=== PATIENT | male | born 1965 | race Caucasian/White ===

== ENCOUNTER 2021-06-10 14:59 | Emergency (ER) | payer BC ==
--- NOTE | 2021-06-10 16:31 | XR ---
EXAMINATION TYPE: XR chest 2V DATE OF EXAM: 06/10/2021 COMPARISON: NONE HISTORY: Chest pain TECHNIQUE: Frontal and lateral views of the chest are obtained. FINDINGS: Vague infiltrate right perihilar region. Correlate for underlying pneumonia. No evidence for pneumothorax. No pleural effusion. The cardiac silhouette size is within normal limits. The osseous structures are grossly intact. IMPRESSION: 1. Vague infiltrate right perihilar region. Correlate for underlying pneumonia.
[2021-06-10] MEDS ORDERED: ACETAMINOPHEN TAB 500 MG TAB PO STA (17:54)
--- NOTE | 2021-06-10 17:58 | ED ---
URI HPI - General Chief Complaint: Upper Respiratory Infection Stated Complaint: COVID+,wants infusion Time Seen by Provider: 06/10/21 17:37 Source: patient, RN notes reviewed Mode of arrival: ambulatory Limitations: no limitations - History of Present Illness Initial Comments: Patient is a 55-year-old male presenting to the emergency department requesting monoclonal antibodies. Patient states he tested positive for Covid 7 days ago, symptoms started about 8 days ago. He isn't having fever, cough, chills, body aches and congestion. He has been taking Motrin for his fever and bodyaches. He last took Motrin about 3 hours prior to arrival. He denies any chest pain or shortness of breath, no abdominal pain, no vomiting or diarrhea. He still been able to tolerate liquids. Patient has no further complaints. Upon arrival to the ER, is a slight temperature 99.7, rest of vitals within normal limits. - Related Data Previous Rx's Medication Instructions Recorded Albuterol Inhaler [Ventolin Hfa 1 puff INHALATION RT-QID PRN #8 gm 06/10/21 Inhaler] Dexamethasone [Decadron] 6 mg PO DAILY 5 Days #5 tablet 06/10/21 Allergies Allergy/AdvReac Type Severity Reaction Status Date / Time cefaclor [From Ceclor] Allergy Unknown Verified 06/10/21 16:01 Penicillins Allergy Unknown Verified 06/10/21 16:01 Childhood Sulfa (Sulfonamide Allergy Rash/Hives Verified 06/10/21 16:01 Antibiotics) Review of Systems ROS Statement: Those systems with pertinent positive or pertinent negative responses have been documented in the HPI. ROS Other: All systems not noted in ROS Statement are negative. General Exam - General Exam Comments Initial Comments: GENERAL: Patient is well-developed and well-nourished. Patient is nontoxic and in no acute distress. HEAD: Atraumatic, normocephalic. EYES: Pupils equal round and reactive to light, extraocular movements intact, sclera anicteric, conjunctiva are normal. Eyelids were unremarkable. ENT: Moist mucous membranes. NECK: Normal range of motion, supple without lymphadenopathy or JVD. LUNGS: Unlabored respirations. Breath sounds clear to auscultation bilaterally and equal. No wheezes rales or rhonchi. HEART: Regular rate and rhythm without murmurs, rubs or gallops. ABDOMEN: Soft, nontender, normoactive bowel sounds. No guarding, no rebound. No masses appreciated. MUSCULOSKELETAL: Normal extremities with adequate strength and normal range of motion, no pitting or edema. No clubbing or cyanosis. NEUROLOGICAL: Patient is alert and oriented x 3. SKIN: Warm, Dry, normal turgor, no rashes or lesions noted. Limitations: no limitations Course Vital Signs 06/10/21 06/10/21 15:59 18:51 Temperature 99.7 F H 98.5 F Pulse Rate 81 91 Respiratory 19 18 Rate Blood Pressure 112/73 123/76 O2 Sat by Pulse 95 97 Oximetry Medical Decision Making - Medical Decision Making Patient is a 55-year-old male here requesting monoclonal antibodies. He tested positive for Covid 7 days ago, symptoms started about 8 days ago. His vitals are stable here. Chest x-ray shows some very mild right-sided changes, no focal pneumonia at this time. Patient did receive monoclonal antibodies, he had no adverse side effects. Given tylenol for fever. He will be prescribed an inhaler and steroids for symptoms. He is agreeable to this plan of care. Return parameters were discussed with him and he verbalized understanding. Disposition Clinical Impression: COVID-19 Disposition: HOME SELF-CARE Condition: Stable Instructions (If sedation given, give patient instructions): Coronavirus Disease 2019 (COVID-19) Additional Instructions: Please return to the Emergency Department if symptoms worsen or any other concerns. Use inhaler as needed for any shortness of breath or cough. Take steroids as prescribed. Alternate between Tylenol and Motrin for fever control. Increase your fluids. Follow up with your primary care. Prescriptions: Dexamethasone [Decadron] 6 mg PO DAILY 5 Days #5 tablet Albuterol Inhaler [Ventolin Hfa Inhaler] 1 puff INHALATION RT-QID PRN #8 gm PRN Reason: Shortness Of Breath Is patient prescribed a controlled substance at d/c from ED?: No Referrals: Franklyn Hernandes MD [Primary Care Provider] - 1-2 days Time of Disposition: 19:49
[2021-06-10] MEDS ORDERED: CASIRIVIMAB (REGN10933) (EUA) 600 MG, IMDEVIMAB (REGN10987) (EUA) 600 MG in SODIUM CHLO... IVPB ONE (18:30)
[2021-06-10] MEDS ORDERED: SODIUM CHLORIDE 0.9% 50 ML IVPB ONE (18:30)
[2021-06-10 20:29] VITALS: BP 133/85; PULSE 78; RESP 20; TEMP 98.7
== END 2021-06-10 20:25 | disposition home or self-care (01) ==
LOC: EC 14:59
DX: U07.1 COVID-19 (principal); Z88.0 Allergy status to penicillin; Z88.2 Allergy status to sulfonamides; Z88.1 Allergy status to other antibiotic agents
CPT/HCPCS: 71046; 99283

== ENCOUNTER → 2024-06-21 | Outpatient (CLI) | payer BC ==
--- NOTE | 2024-06-21 13:59 | US ---
EXAMINATION TYPE: US venous doppler duplex UE RT DATE OF EXAM: 06/21/2024 COMPARISON: NONE CLINICAL INDICATION: Male, 58 years old with history of M25.439 EFFUSION WRIST; Right arm swelling TECHNIQUE: Grayscale, color Doppler and spectral Doppler imaging of the upper extremity. SIDE PERFORMED: Right FINDINGS: Right Arm: Appears negative for DVT Grayscale, color doppler, spectral doppler imaging performed of the deep veins of the upper extremiti es. IMPRESSION: [facility], , 06/21/2024 1:56 PM
== END | disposition home or self-care (01) ==
LOC: RADUSWWP 12:49
PROVIDERS: ATTEND Family Medicine
DX: M25.431 Effusion, right wrist (principal)